=== PATIENT | female | born 1975 | race Caucasian/White ===

== ENCOUNTER 2017-03-25 17:39 | Observation (INO) | payer BC ==
[~2017-03-25] VITALS: Ht 20.3 cm; Wt 104.3 kg
[2017-03-25 18:36] VITALS: BP_SYST 127
== END 2017-03-25 19:15 | disposition home or self-care (01) ==
LOC: SPU 17:39
PROVIDERS: ADMIT Specialist; ATTEND Specialist
DX: O62.9 Abnormality of forces of labor, unspecified (principal); Z3A.35 35 weeks gestation of pregnancy
CPT/HCPCS: 81002; G0378

== ENCOUNTER 2017-04-11 05:40 | Inpatient (IN) | payer BC ==
[~2017-04-11] VITALS: Ht 172.7 cm; Wt 107.0 kg
[2017-04-11] MEDS ORDERED: LR 1,000 ML IV ONE (06:01)
[2017-04-11 06:24] VITALS: BP 127/74; RESP 18; TEMP 98.1
[2017-04-11 06:55] LABS: BILIRUBIN,URINE 1+ (NEGATIVE); BLOOD, URINE NEGATIVE (NEGATIVE); CLARITY/URINE HAZY (CLEAR); COLOR,URINE YELLOW (YELLOW); GLUCOSE,URINE NEGATIVE (NEGATIVE); KETONES,URINE NEGATIVE (NEGATIVE); LEUKOCYTE ESTERASE ,URINE TRACE (NEGATIVE); NITRITE, URINE NEGATIVE (NEGATIVE); PH,URINE 6.5 (5.0-8.0); PROTEIN URINE TRACE (NEGATIVE); UROBILINOGEN,URINE 0.2 (0.2-1.0)
[2017-04-11 06:57] LABS: BASOPHILS % (AUTO) 0.2 % (0.0-2.0); EOSINOPHILS # (AUTO) 0.2 K/uL (0.0-0.4); EOSINOPHILS % (AUTO) 1.7 % (0.0-4.0); HEMATOCRIT 34.8 % (36-48); HEMOGLOBIN 11.6 g/dL (12.0-16.0); LYMPHOCYTES # (AUTO) 1.7 K/uL (1.0-5.5); LYMPHOCYTES % (AUTO) 13.8 % (20.5-51.5); MEAN CORPUSCULAR HEMOGLOBIN 30 pg (27-31); MEAN CORPUSCULAR HGB CONC 33 % (32-36); MEAN CORPUSCULAR VOLUME 89 fL (79.0-98.0); MONOCYTES # (AUTO) 0.8 K/uL (0.0-1.0); MONOCYTES % (AUTO) 6.7 % (1.7-9.3); NEUTROPHILS # (AUTO) 9.6 K/uL (1.8-7.7); NEUTROPHILS % (AUTO) 77.6 % (40.0-70.0); PLATELET COUNT (AUTO) 182 K/uL (130-430); RED BLOOD CELL COUNT(AUTO) 3.92 MIL/uL (4.2-6.2); RED CELL DISTRIBUTION WIDTH 14.1 % (9.0-15.0); WHITE BLOOD COUNT (AUTO) 12.3 K/uL (4.8-10.8)
[2017-04-11] MEDS ORDERED: CLINDAMYCIN 900 mg/50mL D5W 50 ML IV ONE (07:00)
[2017-04-11 08:06] LABS: RBC,URINE 0-3 /HPF (0-3)
[2017-04-11 08:07] LABS: BACTERIA,URINE MODERATE /HPF (None Seen); MUCUS,URINE None Seen /LPF (None Seen)
[2017-04-11] MEDS ORDERED: LR 1,000 ML IV SCH ×2 (08:25→09:21)
[2017-04-11] MEDS ORDERED: MEPERIDINE HCL/PF 25 MG/ML DISP.SYRIN IVP PRN ×2 (08:30)
[2017-04-11] MEDS ORDERED: KETOROLAC TROMETHAMINE 30 MG VIAL IVP PRN ×2 (08:30)
[2017-04-11] MEDS ORDERED: NALOXONE HCL 0.4 MG/ML AMP (NARCAN) IVP PRN (08:30)
[2017-04-11] MEDS ORDERED: NALBUPHINE HCL 10 MG/ML AMP IVP PRN (08:30)
[2017-04-11] MEDS ORDERED: DIPHENHYDRAMINE INJ 50 MG/ML VIAL IVP PRN (08:30)
[2017-04-11] MEDS ORDERED: HYDROmorphone 1 MG INJ. 1 MG/ML AMPUL IVP PRN ×2 (08:30)
[2017-04-11] MEDS ORDERED: MORPHINE SULFATE 10MG/10ML PF AMP SP SCH (08:30)
[2017-04-11] MEDS ORDERED: ONDANSETRON HCL 4 MG/2 ML VIAL IVP PRN ×2 (08:30)
[2017-04-11] MEDS ORDERED: ePHEDrine sulfate 50 MG/ML VIAL IVP PRN (08:30)
[2017-04-11] MEDS ORDERED: HYDROmorphone 2 MG/ML VIAL IVP PRN ×2 (08:30)
[2017-04-11] MEDS ORDERED: OXYTOCIN/NORMAL SALINE 1,000 ML IV ONE ×2 (09:21→09:23)
[2017-04-11] MEDS ORDERED: HYDROcodone/ACETAMIN 5-325 MG TAB (NORCO/ VICODIN) PO PRN (09:30)
[2017-04-11] MEDS ORDERED: ANUSOL 1 EA SUPP.RECT (PREPARATION H) RC PRN (09:30)
[2017-04-11] MEDS ORDERED: MEASLES,MUMPS&RUBELLA VACC/PF 12500 UNIT/0.5 ML VIAL SUBQ PRN (09:30)
[2017-04-11] MEDS ORDERED: SENNOSIDES/DOCUSATE SODIUM 1 TAB TABLET(SENOKOT-S) PO PRN (09:30)
[2017-04-11] MEDS ORDERED: OXYCODONE/ACETAMINOPHEN 5-325 TABLET PO PRN (09:30)
[2017-04-11] MEDS ORDERED: LANOLIN 7 GM OINT. TP PRN (09:30)
[2017-04-11] MEDS ORDERED: BISACODYL 10 MG/SUPPOSITORY RC PRN (09:30)
[2017-04-11] MEDS ORDERED: RHO(D) IMMUNE GLOBULIN/MALTOSE 1500 UNITS/1.3 ML (WINHRO) IM PRN (09:30)
[2017-04-11 09:32] VITALS: BP 124/75
[2017-04-11] MEDS: CLINDAMYCIN 600 mg/50mL D5W 50 ML IV SCH ×3 (12:11→23:52)
[2017-04-11] MEDS ORDERED: MORPHINE SULFATE 10MG/10ML PF AMP ONE (14:00)
[2017-04-11] MEDS ORDERED: ONDANSETRON HCL 4 MG/2 ML VIAL ONE (14:00)
[2017-04-11] MEDS ORDERED: LR 1,000 ML IV.SOLN IV ONE (14:00)
[2017-04-11] MEDS ORDERED: NS IRRIG SOLN 1000 ML IR ONE (14:00)
[2017-04-11] MEDS ORDERED: MEPERIDINE HCL/PF 100 MG/ML AMP ONE (14:00)
[2017-04-11] MEDS ORDERED: BUPIVACAINE /PF 0.25% 30 ML VIAL INJ ONE (14:00)
[2017-04-11] MEDS ORDERED: OXYTOCIN 10 UNIT/ML VIAL ONE (14:00)
[2017-04-11] MEDS ORDERED: CLINDAMYCIN PHOSPHATE 600 mg/50mL D5W IV ONE (14:00)
[2017-04-11] MEDS ORDERED: MIDAZOLAM HCL 5 MG/5 ML VIAL ONE (14:00)
[2017-04-11] MEDS: KETOROLAC TROMETHAMINE 30 MG VIAL IVP SCH ×2 (18:00→23:59)
[2017-04-11] MEDS ORDERED: TEMAZEPAM 15 MG CAPSULE PO PRN (21:00)
[2017-04-12] MEDS: KETOROLAC TROMETHAMINE 30 MG VIAL IVP SCH ×2 (06:03→12:05)
[2017-04-12 06:34] LABS: BASOPHILS % (AUTO) 0.2 % (0.0-2.0); EOSINOPHILS # (AUTO) 0.4 K/uL (0.0-0.4); EOSINOPHILS % (AUTO) 2.5 % (0.0-4.0); HEMATOCRIT 31.7 % (36-48); HEMOGLOBIN 10.8 g/dL (12.0-16.0); LYMPHOCYTES # (AUTO) 1.7 K/uL (1.0-5.5); LYMPHOCYTES % (AUTO) 10.9 % (20.5-51.5); MEAN CORPUSCULAR HEMOGLOBIN 31 pg (27-31); MEAN CORPUSCULAR HGB CONC 34 % (32-36); MEAN CORPUSCULAR VOLUME 91 fL (79.0-98.0); MONOCYTES # (AUTO) 1.1 K/uL (0.0-1.0); MONOCYTES % (AUTO) 6.9 % (1.7-9.3); NEUTROPHILS # (AUTO) 12.2 K/uL (1.8-7.7); NEUTROPHILS % (AUTO) 79.5 % (40.0-70.0); PLATELET COUNT (AUTO) 161 K/uL (130-430); RED BLOOD CELL COUNT(AUTO) 3.49 MIL/uL (4.2-6.2); RED CELL DISTRIBUTION WIDTH 13.8 % (9.0-15.0); WHITE BLOOD COUNT (AUTO) 15.4 K/uL (4.8-10.8)
[2017-04-12] MEDS ORDERED: IBUPROFEN 600 MG TABLET PO ONE (12:30)
[2017-04-12] MEDS ORDERED: IBUPROFEN 600 MG TABLET ONE (12:38)
[2017-04-12] MEDS: OXYCODONE/ACETAMINOPHEN 5-325 TABLET PO PRN ×2 (14:55→19:53)
[2017-04-12] MEDS: SIMETHICONE 80 MG TAB.CHEW PO PRN ×2 (16:30→19:53)
[2017-04-12] MEDS: IBUPROFEN 600 MG TABLET PO SCH (18:02)
[2017-04-12] MEDS: DOCUSATE SODIUM 100 MG CAPSULE PO PRN (19:53)
[2017-04-13] MEDS: OXYCODONE/ACETAMINOPHEN 5-325 TABLET PO PRN ×5 (00:26→20:29)
[2017-04-13] MEDS: SIMETHICONE 80 MG TAB.CHEW PO PRN ×3 (00:26→20:28)
[2017-04-13] MEDS: IBUPROFEN 600 MG TABLET PO SCH ×3 (00:27→18:16)
[2017-04-13] MEDS: DOCUSATE SODIUM 100 MG CAPSULE PO PRN (21:50)
[2017-04-14] MEDS: IBUPROFEN 600 MG TABLET PO SCH ×3 (00:15→12:45)
[2017-04-14] MEDS: OXYCODONE/ACETAMINOPHEN 5-325 TABLET PO PRN ×4 (00:18→13:38)
[2017-04-14] MEDS ORDERED: SERTRALINE HCL 50 MG TABLET PO ONE (14:45)
[2017-04-14] MEDS ORDERED: DIPH-TET-PERTUS Vaccine 0.5 ML VIAL (ADACEL) I.M. SCH (15:00)
== END 2017-04-14 15:15 | disposition home or self-care (01) | DRG 765 ==
LOC: SPU 05:40
PROVIDERS: ADMIT Specialist; ATTEND Specialist
PROC: 0UL70CZ Occlusion of Bilateral Fallopian Tubes with Extraluminal Device, Open Approach (ICD-10-PCS; 2017-04-11)
PROC: 4A0HXCZ Measurement of Products of Conception, Cardiac Rate, External Approach (ICD-10-PCS; 2017-04-11)
PROC: 3E0234Z Introduction of Serum, Toxoid and Vaccine into Muscle, Percutaneous Approach (ICD-10-PCS; 2017-04-11)
PROC: 10D00Z1 Extraction of Products of Conception, Low, Open Approach (ICD-10-PCS; principal; 2017-04-11 07:30)
DX: O34.211 Maternal care for low transverse scar from previous cesarean delivery (principal); K50.90 Crohn's disease, unspecified, without complications; O16.4 Unspecified maternal hypertension, complicating childbirth; O99.62 Diseases of the digestive system complicating childbirth; O99.824 Streptococcus B carrier state complicating childbirth; Z37.0 Single live birth; Z30.2 Encounter for sterilization; Z3A.38 38 weeks gestation of pregnancy; O09.43 Supervision of pregnancy with grand multiparity, third trimester; Z23 Encounter for immunization
CPT/HCPCS: 36415; 81000-TC; 85025; 86592; 86886; 86900; 86901; 87086; 90715; 94760; J1885; J2175; J2250; J2274; J2405; J2590; J3490; J7120

== ENCOUNTER 2017-04-22 20:21 | Emergency (ER) | payer BC ==
[~2017-04-22] VITALS: Ht 170.2 cm; Wt 97.5 kg
[2017-04-22 20:28] VITALS: BP_SYST 196
[2017-04-22] MEDS ORDERED: MORPHINE 2 MG/ML INJ. SYRINGE IVP ONE (21:00)
[2017-04-22] MEDS ORDERED: FUROSEMIDE 40 MG/4 ML VIAL IVP ONE (21:00)
[2017-04-22] MEDS ORDERED: hydrALAZINE HCL 20 MG/ML VIAL IVP ONE (21:00)
[2017-04-22] MEDS ORDERED: NACL 0.9% 1,000 ML IV ONE (21:00)
[2017-04-22 21:14] LABS: BASOPHILS # (AUTO) 0.1 K/uL (0.0-0.2); BASOPHILS % (AUTO) 1.3 % (0.0-2.0); EOSINOPHILS # (AUTO) 0.3 K/uL (0.0-0.4); EOSINOPHILS % (AUTO) 3.2 % (0.0-4.0); HEMATOCRIT 31.8 % (36-48); HEMOGLOBIN 10.7 g/dL (12.0-16.0); LYMPHOCYTES % (AUTO) 21.3 % (20.5-51.5); MEAN CORPUSCULAR HEMOGLOBIN 30 pg (27-31); MEAN CORPUSCULAR HGB CONC 34 % (32-36); MEAN CORPUSCULAR VOLUME 88 fL (79.0-98.0); MONOCYTES # (AUTO) 0.5 K/uL (0.0-1.0); MONOCYTES % (AUTO) 5.4 % (1.7-9.3); NEUTROPHILS # (AUTO) 6.5 K/uL (1.8-7.7); NEUTROPHILS % (AUTO) 68.8 % (40.0-70.0); PLATELET COUNT (AUTO) 263 K/uL (130-430); RED BLOOD CELL COUNT(AUTO) 3.61 MIL/uL (4.2-6.2); RED CELL DISTRIBUTION WIDTH 13.1 % (9.0-15.0); WHITE BLOOD COUNT (AUTO) 9.4 K/uL (4.8-10.8)
[2017-04-22 21:27] LABS: CREATININE 0.87 mg/dL (0.55-1.30); POTASSIUM 3.5 mmol/L (3.5-5.1)
[2017-04-22 21:30] LABS: INR 1.1 (0.8-1.2); PROTHROMBIN TIME 11.9 SECS (9.5-12.5)
[2017-04-22 21:31] LABS: ALBUMIN 3.1 g/dL (3.4-4.8); TOTAL BILIRUBIN 0.3 mg/dL (0.0-1.0); TOTAL PROTEIN, SERUM 6.8 g/dL (6.4-8.3)
[2017-04-22 22:00] LABS: BILIRUBIN,URINE NEGATIVE (NEGATIVE); BLOOD, URINE 3+ (NEGATIVE); CLARITY/URINE HAZY (CLEAR); COLOR,URINE YELLOW (YELLOW); GLUCOSE,URINE NEGATIVE (NEGATIVE); KETONES,URINE NEGATIVE (NEGATIVE); LEUKOCYTE ESTERASE ,URINE TRACE (NEGATIVE); NITRITE, URINE NEGATIVE (NEGATIVE); PROTEIN URINE NEGATIVE (NEGATIVE); UROBILINOGEN,URINE 0.2 (0.2-1.0)
[2017-04-22 22:10] LABS: BACTERIA,URINE FEW /HPF (None Seen)
[2017-04-22 22:11] LABS: MUCUS,URINE 3+ /LPF (None Seen)
[2017-04-22 22:31] VITALS: BP_SYST 148
[2017-04-23] MEDS ORDERED: BENA20TA2 PO (03:55)
[2017-04-23] MEDS ORDERED: IBUP-1969 PO (03:55)
[2017-04-23] MEDS ORDERED: PREN-58 PO (03:55)
[2017-04-23] MEDS ORDERED: SERT50TA12 PO (03:55)
[2017-04-23] MEDS ORDERED: CARV6.2554 PO (03:55)
[2017-04-23] MEDS ORDERED: OXYC5TAB84 PO (03:55)
== END 2017-04-22 22:31 | disposition home or self-care (01) ==
LOC: SED 20:21
DX: I10 Essential (primary) hypertension (principal); Z88.0 Allergy status to penicillin; Z88.2 Allergy status to sulfonamides
CPT/HCPCS: 36415; 71010; 80053; 81000; 83880; 84484; 85025; 85610; 85730; 87086; 93005; 96361; 96374; 96375; 99285; J0360; J1940; J2270; J7030

== ENCOUNTER 2017-04-23 02:28 | Inpatient (IN) | payer BC ==
[~2017-04-23] VITALS: Ht 170.2 cm; Wt 97.5 kg
[2017-04-23 02:30] VITALS: BP_SYST 192
[2017-04-23] MEDS ORDERED: MAGNESIUM SULFATE 4 GM in D5W 250 ML IV ONE (02:45)
[2017-04-23] MEDS ORDERED: NACL 0.9% 1,000 ML IV ONE (02:45)
[2017-04-23] MEDS ORDERED: hydrALAZINE HCL 20 MG/ML VIAL IVP ONE ×2 (02:45→07:15)
[2017-04-23] MEDS ORDERED: MAGNESIUM SULFATE 50 ML IV ONE (02:58)
[2017-04-23] MEDS ORDERED: MAGNESIUM SULFATE 1 GM/2 ML VIAL ONE (02:59)
[2017-04-23] MEDS ORDERED: MORPHINE 2 MG/ML INJ. SYRINGE IVP ONE ×2 (03:30→07:15)
[2017-04-23] MEDS ORDERED: SERT50TA12 PO (03:55)
[2017-04-23] MEDS ORDERED: BENA20TA2 PO (03:55)
[2017-04-23] MEDS ORDERED: IBUP-1969 PO (03:55)
[2017-04-23] MEDS ORDERED: PREN-58 PO (03:55)
[2017-04-23] MEDS ORDERED: OXYC5TAB84 PO (03:55)
[2017-04-23] MEDS ORDERED: CARV6.2554 PO (03:55)
[2017-04-23] MEDS ORDERED: MAGNESIUM SULFATE IN WATER 100 ML IV ONE (04:30)
[2017-04-23] MEDS ORDERED: hydrALAZINE HCL 20 MG/ML VIAL IVP PRN (05:00)
[2017-04-23] MEDS: MAGNESIUM SULFATE IN WATER 500 ML IV SCH ×2 (08:10→17:10)
[2017-04-23 08:14] VITALS: BP_SYST 163
[2017-04-23] MEDS ORDERED: FIORCET PO PRN (08:15)
[2017-04-23] MEDS ORDERED: ACETAMINOPHEN 500 MG TABLET PO PRN (08:15)
[2017-04-23] MEDS ORDERED: FIORCET ONE (08:34)
[2017-04-23] MEDS ORDERED: hydrALAZINE HCL 10 MG TABLET PO SCH (09:00)
[2017-04-23] MEDS: ONDANSETRON HCL 4 MG/2 ML VIAL IVP PRN ×2 (09:08→19:04)
[2017-04-23] MEDS ORDERED: OXYCODONE/ACETAMINOPHEN 5-325 TABLET PO PRN (11:15)
[2017-04-23] MEDS: OXYCODONE/ACETAMINOPHEN 5-325 TABLET PO PRN ×3 (11:21→19:59)
[2017-04-23] MEDS ORDERED: CARVEDILOL 6.25 MG TABLET (COREG) PO SCH (21:00)
[2017-04-23] MEDS: BENAZEPRIL HCL 20 MG TABLET (LOTENSIN) PO SCH (21:19)
[2017-04-24] MEDS: OXYCODONE/ACETAMINOPHEN 5-325 TABLET PO PRN ×3 (00:20→04:36)
[2017-04-24] MEDS: ONDANSETRON HCL 4 MG/2 ML VIAL IVP PRN (07:47)
[2017-04-24] MEDS: BENAZEPRIL HCL 20 MG TABLET (LOTENSIN) PO SCH (10:03)
== END 2017-04-24 15:10 | disposition home or self-care (01) | DRG 776 ==
LOC: SED 02:28 → SPU 07:05
PROVIDERS: ADMIT Specialist; ATTEND Specialist
DX: O11.5 Pre-existing hypertension with pre-eclampsia, complicating the puerperium (principal); I16.0 Hypertensive urgency; Z88.0 Allergy status to penicillin; Z88.2 Allergy status to sulfonamides
CPT/HCPCS: 96365; 96366; 96375; 99285; J0360; J2270; J2405; J3475; J7030; J7060; J7120